=== PATIENT | male | born 1975 | race Two or more races ===

== ENCOUNTER 2019-08-29 21:02 | Inpatient (IN) | payer SELFPAY ==
[~2019-08-29] VITALS: Ht 170.2 cm; Wt 95.3 kg
--- NOTE | 2019-08-29 21:29 | NUR ---
Patient came into the ER with chief complaint of intermittent palpitation and chest pain since this morning. NV and diarrhea since yesterday. Patientalso reported binged drinking since 2018. Patient AAOx4. In no acute distress. Denies any SOB.
--- NOTE | 2019-08-29 21:30 | NUR ---
Dr Edmonds at bedside for MSE.
[2019-08-29] MEDS ORDERED: IV NS 1000 ML 1,000 ML IV ONE (21:45)
[2019-08-29] MEDS ORDERED: ONDANSETRON 4 MG/2 ML VIAL IV ONE (21:45)
[2019-08-29] MEDS ORDERED: ASPIRIN 325 MG TABLET PO ONE (21:45)
[2019-08-29 21:50] LABS: BASOPHILS # (AUTO) 0.1 K/uL (0.0-8.0); BASOPHILS % (AUTO) 0.7 % (0.0-2.0); EOSINOPHILS # (AUTO) 0.2 K/uL (0.0-0.7); EOSINOPHILS % (AUTO) 1.5 % (0.0-7.0); HEMATOCRIT 46.9 % (36.7-47.1); HEMOGLOBIN 16.1 g/dL (12.5-16.3); LYMPHOCYTES # (AUTO) 3.9 K/uL (20.0-40.0); LYMPHOCYTES % (AUTO) 35.6 % (20.5-51.5); MEAN CORPUSCULAR HGB CONC 34 g/dL (32.5-36.3); MEAN CORPUSCULAR VOLUME 90.3 fL (73.0-96.2); MONOCYTES # (AUTO) 0.8 K/uL (2.0-10.0); MONOCYTES % (AUTO) 7.7 % (0.0-11.0); NEUTROPHILS # (AUTO) 5.9 K/uL (1.8-8.9); NEUTROPHILS % (AUTO) 54.5 % (38.5-71.5); PLATELET COUNT (AUTO) 255 K/uL (152-348); RED BLOOD CELL COUNT(AUTO) 5.19 MIL/uL (4.06-5.63); WHITE BLOOD COUNT (AUTO) 10.9 K/uL (3.6-10.2)
[2019-08-29] MEDS ORDERED: ASPIRIN 325 MG TABLET ONE (21:51)
[2019-08-29] MEDS ORDERED: ONDANSETRON 4 MG/2 ML VIAL ONE (21:51)
[2019-08-29 21:58] LABS: CREATININE 0.7 mg/dL (0.6-1.3); POTASSIUM 3.7 mmol/L (3.5-5.1)
[2019-08-29 22:11] LABS: BILIRUBIN,DIRECT 0.2 mg/dL (0.0-0.2); BILIRUBIN,TOTAL 0.7 mg/dL (0.2-1.0); TOTAL PROTEIN, SERUM 8.6 g/dL (6.4-8.2)
--- NOTE | 2019-08-29 22:40 | NUR ---
ADMITTED PATIENT ON TELE FLOOR UNDER THE CARE OF DR. STARKS. PATIENT ALERT ORIENTED, NO SOB N CHEST PAIN NOTED, TELE MONITOR SINUS RYTHM AT THIS TIME. 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 HE SAID THAT HE PROBABLY DRINK TOO MUCH CAUSING HIM TO HAVE NAUSEA AND VOMITING. BELONGINGS DONE.
[2019-08-29] MEDS ORDERED: benazepril PO (22:47)
--- NOTE | 2019-08-29 22:53 | NUR ---
Epic panel call placed, spoke to Delores she stated she will get a hold of Dr. Brasher for admitting.
--- NOTE | 2019-08-29 22:54 | NUR ---
Dr. Edmonds on panel call with Dr. Brasher.
--- NOTE | 2019-08-29 23:00 | NUR ---
Report given to lay brotherISHMAEL Peña. Patient will be admittent in patient Telemetry unit Room 302 with Dx Chest pain.
[2019-08-29] MEDS ORDERED: MAGNESIUM SULFATE/D5W 200 ML ONE (23:04)
[2019-08-29] MEDS: MAGNESIUM SULFATE/D5W 100 ML IV SCH (23:10)
--- NOTE | 2019-08-29 23:40 | NUR ---
Patient admitted to telemetry unit room 302.
--- NOTE | 2019-08-29 23:40 | NUR ---
ADMITTED ON TELE FLOOR UNDER THE CARE OF DR. STARKS. PATIENT ALERT ORIENTED, NO SOB NO CHEST PAIN AT THIS TIME. PATIENT ADMITS THAT HE DRINKS ALCOHOL BECAUSE OF THE OF HIS OLDER BROTHER IN [place]. BELONGING LIST DONE.
[2019-08-29] MEDS ORDERED: HYDROCODONE/APAP 5-325MG TABLET PO PRN (23:45)
[2019-08-29] MEDS ORDERED: Z GUARD REMEDY PASTE 57 GM TUBE TOP PRN (23:45)
[2019-08-29] MEDS ORDERED: LORAZEPAM 2 MG/1 ML VIAL IV PRN (23:45)
[2019-08-29] MEDS ORDERED: MAGNESIUM HYDROXIDE 30 ML LIQUID UDC PO PRN (23:45)
[2019-08-29] MEDS ORDERED: MORPHINE SULFATE 2 MG/1 ML DISP.SYRIN IV PRN (23:45)
[2019-08-29] MEDS ORDERED: ZOLPIDEM 5 MG TABLET PO PRN (23:45)
[2019-08-29] MEDS ORDERED: ONDANSETRON 4 MG/2 ML VIAL IV PRN (23:45)
[2019-08-29] MEDS ORDERED: IV NS 1000 ML 1,000 ML IV SCH (23:45)
[2019-08-29] MEDS ORDERED: NITROGLYCERIN 0.4 MG/TAB BOTTLE SL PRN (23:45)
[2019-08-29] MEDS ORDERED: ACETAMINOPHEN 325 MG TABLET PO PRN (23:45)
[2019-08-30 00:09] VITALS: BP 142/96
[2019-08-30] MEDS ORDERED: LORAZEPAM 2 MG/1 ML VIAL IV PRN (00:15)
[2019-08-30] MEDS ORDERED: PANTOPRAZOLE SODIUM 40 MG TABLET.DR PO ONE (00:15)
[2019-08-30] MEDS: IV NS 1000 ML 1,000 ML IV SCH ×3 (00:39→13:30)
[2019-08-30] MEDS: MAGNESIUM SULFATE/D5W 100 ML IV SCH (00:41)
[2019-08-30] MEDS: FOLIC ACID/VITAMIN B COMP W-C TABLET PO SCH ×2 (00:44→08:20)
[2019-08-30] MEDS: THIAMINE HCL 100 MG TABLET PO SCH ×2 (00:44→08:20)
[2019-08-30] MEDS: CHLORDIAZEPOXIDE HCL 25 MG CAPSULE PO SCH ×3 (00:44→12:17)
[2019-08-30 03:07] LABS: *AMPHETAMINE, URINE NEGATIVE (NEGATIVE); *BARBITURATE, URINE NEGATIVE (NEGATIVE); *CANNABINOID, URINE NEGATIVE (NEGATIVE); *COCCAINE, URINE POSITIVE (NEGATIVE); *OPIATE, URINE NEGATIVE (NEGATIVE); *PHENCYCLIDINE SCREEN,URINE NEGATIVE (NEGATIVE)
[2019-08-30 04:52] VITALS: BP 132/81
--- NOTE | 2019-08-30 06:22 | NUR ---
PATIENT ASLEEP BUT EASILY AROUSABLE, NO SOB NO CHEST PAIN. PATIENT ON TELE MONITOR SINUS RHYTHM AT THIS TIME. PATIENT HAS NO COMPLAIN OF CHEST PAIN, CONT TO MONITOR.
[2019-08-30 06:43] LABS: CREATININE 0.7 mg/dL (0.6-1.3); MAGNESIUM 2.1 mg/dL (1.8-2.4); PHOSPHOROUS 3.6 mg/dL (2.5-4.9); POTASSIUM 3.3 mmol/L (3.5-5.1)
[2019-08-30] MEDS ORDERED: PANTOPRAZOLE SODIUM 40 MG TABLET.DR PO SCH (07:00)
[2019-08-30 07:13] LABS: BASOPHILS # (AUTO) 0.1 K/uL (0.0-8.0); BASOPHILS % (AUTO) 1.2 % (0.0-2.0); EOSINOPHILS # (AUTO) 0.3 K/uL (0.0-0.7); EOSINOPHILS % (AUTO) 3.5 % (0.0-7.0); HEMATOCRIT 45.2 % (36.7-47.1); HEMOGLOBIN 15.4 g/dL (12.5-16.3); LYMPHOCYTES # (AUTO) 3.3 K/uL (20.0-40.0); LYMPHOCYTES % (AUTO) 38.4 % (20.5-51.5); MEAN CORPUSCULAR HEMOGLOBIN 30.6 uug (23.8-33.4); MEAN CORPUSCULAR HGB CONC 34 g/dL (32.5-36.3); MONOCYTES # (AUTO) 0.7 K/uL (2.0-10.0); MONOCYTES % (AUTO) 8.1 % (0.0-11.0); NEUTROPHILS # (AUTO) 4.2 K/uL (1.8-8.9); NEUTROPHILS % (AUTO) 48.8 % (38.5-71.5); PLATELET COUNT (AUTO) 250 K/uL (152-348); RED BLOOD CELL COUNT(AUTO) 5.02 MIL/uL (4.06-5.63); WHITE BLOOD COUNT (AUTO) 8.6 K/uL (3.6-10.2)
[2019-08-30 07:25] LABS: THYROID STIMULATING HORMONE 4.588 mIU/mL (0.358-3.740)
[2019-08-30] MEDS ORDERED: POTASSIUM CHLORIDE 20 MEQ TAB.PRT.SR PO ONE (07:45)
--- NOTE | 2019-08-30 08:00 | NUR ---
awake alert and oriented x4, denies chest pain and sod, resting most of the time in bed with ivf 150ml/hr. SR on monitor
[2019-08-30] MEDS ORDERED: ASPIRIN EC 81 MG TABLET.DR PO SCH (09:00)
[2019-08-30 11:30] VITALS: BP 142/92
--- NOTE | 2019-08-30 12:00 | NUR ---
no acute change from am assessment
--- NOTE | 2019-08-30 14:00 | NUR ---
seen by search engine marketing manager for consult see notes
--- NOTE | 2019-08-30 15:19 | NUR ---
seen by hospitalist with discharge order to home, follow-up with PCP and care specialist
--- NOTE | 2019-08-30 15:58 | NUR ---
DISCHARGED HOME STABLE AND AMBULATORY, NO NEW MEDS BUT CONTINUE HOME MEDICATIONS
== END 2019-08-30 16:04 | disposition home or self-care (01) | DRG 897 ==
LOC: ER 21:07 → TELE3 23:28
PROVIDERS: ADMIT Hospitalist; ATTEND Hospitalist
DX: F10.239 Alcohol dependence with withdrawal, unspecified (principal); F10.20 Alcohol dependence, uncomplicated; Y90.1 Blood alcohol level of 20-39 mg/100 ml; R94.31 Abnormal electrocardiogram [ECG] [EKG]; K21.9 Gastro-esophageal reflux disease without esophagitis; R07.89 Other chest pain; K29.70 Gastritis, unspecified, without bleeding; M79.602 Pain in left arm; R11.10 Vomiting, unspecified; W19.XXXA Unspecified fall, initial encounter; Y92.89 Other specified places as the place of occurrence of the external cause
CPT/HCPCS: 36415; 70030-TC; 71045; 80307; 83690; 83735; 84100; 84443; 85025; 85730; 93005; 93307; A4663; G0378; G0480; J2060; J2405; J3475; J7030